=== PATIENT | female | born 1995 | race Hispanic/Latino ===

== ENCOUNTER 2017-06-01 16:04 | Emergency (ER) | payer SELFPAY ==
[2017-06-01 17:46] LABS: Clarity Hazy (Clear)
[2017-06-01 17:47] LABS: Bilirubin Negative (Negative); Blood, Urine Large (Negative); Glucose, Urine (Dipstick) Negative (Negative); Leukocyte Trace (Negative); Nitrite Negative (Negative); Protein, Urine (Dipstick) Negative (Neg-Trace); Urobilinogen 0.2 mg/dL (0.2-1.0); pH, Urine 5.5 (5.0-9.0)
[2017-06-01 17:48] LABS: Bacteria/HPF Rare-Few HPF (None Seen); Pregnancy Test - Urine (BHCG) POSITIVE (Negative); Pregu Control Background? CLEAR/WHITE (CLR/WHITE); Pregu Control Bar Appear? YES (CONTROL BAR); WBC/HPF 0-3 HPF (0-3)
[2017-06-01 18:08] LABS: #Eosinphils 0.1 thou/uL (0.0-0.7); #Lymphocytes 2.8 thou/uL (1.20-3.40); #Monocytes 0.5 thou/uL (0.11-0.59); #Neutrophils 5.2 thou/uL (1.40-6.50); %Basophils 0.6 % (0.0-1.0); %Eosinophils 0.9 % (0.0-10.0); %Lymphocytes 32.5 % (21.0-51.0); %Monocytes 5.6 % (0.0-10.0); %Neutrophils 60.4 % (42.0-75.0); Mean Corpuscular HGB CONC 34.3 g/dL (32.0-36.0); Mean Corpuscular Hemoglobin 29.3 pg (27.0-31.0); Mean Corpuscular Volume 85.3 fl (81.0-99.0); Mean Platelet Volume 5.4 fL (7.4-10.4); Platelet Count 391 thou/uL (130-400); RBC Distribution Width 12.3 % (11.5-14.5); Red Blood Cell (RBC) Count 4.09 mill/uL (4.20-5.40); White Blood Cell (WBC) Count 8.6 thou/uL (4.8-10.8)
[2017-06-01 18:12] LABS: INR-International Normal Ratio 1.2; PTT 31.9 SEC (22.9-36.1); Prothrombin Time 15.1 SEC (12.0-14.7)
[2017-06-01 18:22] LABS: ALT (SGPT) 15 U/L (8-55); AST (SGOT) 16 U/L (5-34); Albumin 4.4 g/dL (3.5-5.0); Alkaline Phosphatase 69 U/L (40-150); Anion Gap 14 mmol/L (10-20); BUN (Urea Nitrogen) 7 mg/dL (7.0-18.7); Bilirubin, Total 0.3 mg/dL (0.2-1.2); Calc. Creatinine Clearance 0 mL/min (70-130); Carbon Dioxide 21 mmol/L (22-29); Chloride 108 mmol/L (98-107); Estimated GFR-MDRD Greater than 90; Globulin 3.2 g/dL (2.4-3.5); Glucose 83 mg/dL (70-105); Potassium 3.6 mmol/L (3.5-5.1); Protein, Total 7.6 g/dL (6.0-8.3); Sodium 139 mmol/L (136-145)
== END 2017-06-01 19:47 | disposition home or self-care (01) ==
LOC: MADERS 16:04
DX: O20.0 Threatened abortion (principal); Z3A.08 8 weeks gestation of pregnancy
CPT/HCPCS: 36415; 80053; 81001; 81025; 84702; 85025; 85610; 85730; 86900; 86901; 87086; 99284

== ENCOUNTER 2019-10-25 14:52 | Emergency (ER) | payer SELFPAY ==
[2019-10-25] MEDS ORDERED: Dexamethasone 4 MG TAB ONE (15:37)
[2019-10-25] MEDS ORDERED: Acetaminophen 500 MG TAB ONE (15:37)
[2019-10-25] MEDS ORDERED: Ibuprofen 400 MG TAB ONE (15:37)
[2019-10-25] MEDS ORDERED: AMOXicillin 250 MG CAP ONE (16:27)
[2019-10-25] MEDS ORDERED: Oseltamivir 75 MG CAP ONE (16:27)
== END 2019-10-25 16:45 | disposition home or self-care (01) ==
LOC: MADERS 14:52
DX: J10.83 Influenza due to other identified influenza virus with otitis media (principal); J10.1 Influenza due to other identified influenza virus with other respiratory manifestations
CPT/HCPCS: 87081; 87430; 87804; 99283; J8540